=== PATIENT | male | born 1980 | race African-American/Black ===

== ENCOUNTER 2016-07-29 09:01 | Emergency (ER) | payer BC, MEDICAID ==
[~2016-07-29] VITALS: Ht 180.3 cm; Wt 68.0 kg
[~2016-07-29 09:01] MED LIST: ALBUAER3 IN; AZITTAB11 PO; METH4PAK PO
[2016-07-29 09:07] VITALS: BP 102/62
[2016-07-29] MEDS ORDERED: ACETAMINOPHEN 325 MG TAB PO ONE (09:30)
== END 2016-07-29 09:35 | disposition home or self-care (01) ==
LOC: ER 09:01
DX: J45.901 Unspecified asthma with (acute) exacerbation (principal); J20.9 Acute bronchitis, unspecified; D86.9 Sarcoidosis, unspecified; F17.210 Nicotine dependence, cigarettes, uncomplicated

== ENCOUNTER 2018-02-10 14:32 | Emergency (ER) | payer MEDICAID ==
[~2018-02-10] VITALS: Ht 180.3 cm; Wt 74.8 kg
[2018-02-10 14:46] VITALS: BP 103/60
[2018-02-10 15:14] LABS: Basophils # (auto) 0 uL; Basophils % (auto) 0.5 % (0.0-2.0); Eosinophils # (auto) 0.1 uL; Eosinophils % (auto) 1.7 % (0.0-7.0); Hematocrit 43.8 % (41.0-53.0); Lymphocytes # (auto) 1.7 uL; Lymphocytes % (auto) 22.3 % (10.0-50.0); Mean Corpuscular Hemoglobin 32.4 pg (28.0-32.0); Mean Corpuscular Hgb Conc. 34.2 g/dL (32.0-36.0); Mean Corpuscular Volume 94.6 fL (80.0-100.0); Monocytes # (auto) 0.8 uL; Monocytes % (auto) 10.1 % (0.0-12.0); Neutrophils % (auto) 65.4 % (37.0-80.0); Nucleated Red Blood Cells % 0.2 %; Platelet Count (auto) 209 10^3/uL (140-450); Red Blood Cells 4.63 10^6/uL (4.5-5.90); Red Cell Distribution Width 13.3 % (11.8-14.3); White Blood Cell 7.6 10^3/uL (4.4-10.8)
[2018-02-10] MEDS ORDERED: ALBUTEROL SULF 2.5 MG/0.5ML(0.5%) NEB SOLN HHN ONE (15:15)
[2018-02-10] MEDS ORDERED: methylPREDNISolone SOD SUCC 125 MG/2 ML VL IV ONE (15:15)
[2018-02-10] MEDS ORDERED: IPRATROPIUM BROM 0.5 MG/2.5ML INH SOL HHN ONE (15:15)
[2018-02-10 15:25] LABS: Albumin 3.5 g/dL (3.4-5.0); Anion Gap 5 (5-15); Blood Urea Nitrogen 10 mg/dL (7-18); Calcium 8.6 mg/dL (8.5-10.1); Carbon Dioxide 27 mmol/L (21-32); Chloride 108 mmol/L (98-107); Glucose 119 mg/dL (74-106); Potassium 3.6 mmol/L (3.5-5.1); Sodium 140 mmol/L (136-145)
[2018-02-10 15:31] LABS: Alanine Aminotransferase 16 U/L (16-61); Alkaline Phosphatase 59 U/L (45-117); Aspartate Aminotransferase 14 U/L (15-37); BUN/Creatinine Ratio 10.2; Bilirubin, Total 0.5 mg/dL (0.2-1.0); GFR African American 111 mL/min; GFR Non-African American 91 mL/min; Total Protein 6.9 g/dL (6.4-8.2)
[2018-02-10] MEDS ORDERED: methylPREDNISolone SOD SUCC 125 MG/2 ML VL IM ONE (16:00)
[2018-02-10] MEDS ORDERED: ACETAMINOPHEN 325 MG TAB PO ONE ×2 (17:00→17:04)
== END 2018-02-10 17:20 | disposition home or self-care (01) ==
LOC: ER 14:33
DX: J18.9 Pneumonia, unspecified organism (principal); D86.9 Sarcoidosis, unspecified; J45.909 Unspecified asthma, uncomplicated; Z87.891 Personal history of nicotine dependence
CPT/HCPCS: 36415; 71046; 80053; 83605; 83880; 84484; 85025; 87040; 94644; 94761; 96372; 99285; J7611; J7644

== ENCOUNTER 2019-01-08 11:04 | Emergency (ER) | payer MEDICAID ==
[~2019-01-08] VITALS: Ht 180.3 cm; Wt 68.0 kg
[2019-01-08] MEDS ORDERED: methylPREDNISolone SOD SUCC 125 MG/2 ML VL IM ONE (12:00)
[2019-01-08] MEDS ORDERED: IPRATROPIUM BROM 0.5 MG/2.5ML INH SOL NEB ONE (12:00)
[2019-01-08] MEDS ORDERED: ALBUTEROL SULF 2.5 MG/0.5ML(0.5%) NEB SOLN NEB ONE (12:00)
[2019-01-08 12:05] VITALS: BP 97/74
== END 2019-01-08 13:11 | disposition home or self-care (01) ==
LOC: ER 11:16
DX: J45.901 Unspecified asthma with (acute) exacerbation (principal)
CPT/HCPCS: 94640; 96372; 99283; J2930; J7611; J7644